=== PATIENT | female | born 1940 | race Caucasian/White ===

== ENCOUNTER 2017-05-01 05:51 | Day surgery (SDC) | payer MEDICARE, OTHER ==
[2017-05-01] MEDS: BUPIVACAINE 0.25% (MPF) 30 ML INJ INJ
[2017-05-01] MEDS ORDERED: SOD CHLORIDE 0.9% 1,000 ML IV (06:00)
[2017-05-01] MEDS ORDERED: PROPOFOL 20 ML (08:22)
[2017-05-01] MEDS ORDERED: SUCCINYLCHOLINE CHLORIDE 100 MG/5 ML SYG IV (08:22)
[2017-05-01] MEDS ORDERED: LIDOCAINE 2% (SDV) 5 ML INJ (08:22)
[2017-05-01] MEDS ORDERED: PROVENTIL HFA 6.7GM INHALER (08:23)
[2017-05-01] MEDS ORDERED: FENTAnyl 50 MCG/ML VIAL ×2 (08:25→09:34)
[2017-05-01] MEDS: CEFAZOLIN 1 GM/50 ML (PMX) 50 ML IVPB (08:40)
[2017-05-01] MEDS ORDERED: FAMOTIDINE 20 MG INJ (08:43)
[2017-05-01] MEDS ORDERED: ONDANSETRON 4 MG INJ (08:43)
[2017-05-01] MEDS ORDERED: CEFAZOLIN 1 GM INJ (08:43)
[2017-05-01] MEDS ORDERED: DEXAMETHASONE 4 MG/ML 1 ML INJ (08:43)
[2017-05-01] MEDS ORDERED: BUPIVACAINE 0.25% (MPF) 30 ML INJ (08:52)
[2017-05-01] MEDS ORDERED: EPHEDrine SULFATE 50 MG/5 ML SYG (08:57)
[2017-05-01] MEDS ORDERED: PHENYLephrine (100 MCG/ML) 5ML SYG (09:01)
[2017-05-01] MEDS ORDERED: KETOROLAC 30 MG INJ (09:10)
[2017-05-01] MEDS ORDERED: MEPERIDINE 25 MG INJ IV (09:30)
[2017-05-01] MEDS ORDERED: DIPHENHYDRAMINE 50 MG INJ IV (09:30)
[2017-05-01] MEDS ORDERED: hydrALAzine 20 MG INJ IV (09:30)
[2017-05-01] MEDS ORDERED: OXYCODONE/ACETAMINOPHEN (5/325) TAB PO ×2 (09:30)
[2017-05-01] MEDS ORDERED: ONDANSETRON 4 MG INJ IV (09:30)
[2017-05-01] MEDS ORDERED: PROCHLORPERAZINE 10 MG INJ IV (09:30)
[2017-05-01] MEDS ORDERED: HYDROmorphONE (0.2 MG/ML) 10ML SYG IV (09:30)
[2017-05-01] MEDS ORDERED: LABETALOL HCL 20MG INJ IV (09:30)
[2017-05-01] MEDS: FENTAnyl 50 MCG/ML VIAL IV (09:38)
== END 2017-05-04 12:01 | disposition home or self-care (01) ==
LOC: SDS 05:51
DX: K64.4 Residual hemorrhoidal skin tags (principal); K64.8 Other hemorrhoids; E78.5 Hyperlipidemia, unspecified; J45.909 Unspecified asthma, uncomplicated
CPT/HCPCS: 45300; 88304